=== PATIENT | male | born 1990 | race Caucasian/White ===

== ENCOUNTER → 2020-11-12 | Outpatient (CLI) | payer OTHER ==
--- NOTE | 2020-11-12 15:16 | US ---
EXAMINATION TYPE: US scrotum with doppler. Grayscale and color Doppler Duplex imaging performed of сергей neely scrotum. DATE OF EXAM: 11/12/2020 COMPARISON: NONE CLINICAL HISTORY: N50.89 LT TESTICLE SWELLING,PAINLESS. Left swelling for a month EXAM MEASUREMENTS: TESTICLES: Right Testicle: 4.5x1.9x2.7 cm Left Testicle: 4.6x1.8x2.4 cm EPIDIDYMIS HEAD: Right Epididymis: 0.9 cm Left Epididymis: 0.9 cm Doppler performed to assess for testicular vascularity; good bilateral color flow and waveforms are s een. There is no evidence of testicular torsion. Presence of hydroceles: Left? Anechoic area seen around left testicle hydrocele vs. other etiology. (Outside scrotal wall) Presence of varicoceles: Right upper limits of normal Multiple epi cysts bilaterally. Largest right measures 1.4x0.7x0.9cm and exophytic left measuring 0.4 x0.5x0.6cm Scrotal natalya? Echogenic foci with posterior shadowing seen in left large anechoic area measuring 1.3 cm IMPRESSION: 1. Large left-sided hydrocele. 2. Multiple epididymal cysts.
== END | disposition home or self-care (01) ==
LOC: RADUSWWP 14:11
PROVIDERS: ATTEND Family Medicine
DX: N43.3 Hydrocele, unspecified (principal); N50.3 Cyst of epididymis
CPT/HCPCS: 76870; 93975